=== PATIENT | female | born 1975 | race Caucasian/White ===

== ENCOUNTER 2017-10-13 09:18 | Day surgery (SDC) | payer MEDICAID ==
[~2017-10-13 09:18] MED LIST: CEFAZOLIN 2 GM/50 ML (PMX) 50 ML IVPB; SOD CHLORIDE 0.9% 1,000 ML IV
[2017-10-13 10:04] LABS: ADD MAN DIFF? NO
[2017-10-13 10:19] LABS: BASOPHILS % 0.4 % (0.0-2.0); EOSINOPHILS # 0.1 10^3/ul (0.0-0.5); EOSINOPHILS % 0.5 % (0.0-7.0); HEMATOCRIT 42.8 % (37.0-47.0); HEMOGLOBIN 14.3 g/dl (12.0-16.0); MEAN CORPUSCULAR HEMOGLOBIN 29.8 pg (29.0-33.0); MEAN CORPUSCULAR HGB CONC 33.4 g/dl (32.0-37.0); MEAN CORPUSCULAR VOLUME 89.2 fl (82.0-101.0); MEAN PLATELET VOLUME 11.1 fl (7.4-10.4); MONOCYTE # 0.5 10^3/ul (0.3-0.9); MONOCYTES % 5.1 % (0.0-11.0); NEUTROPHIL # 5.6 10^3/ul (1.6-7.5); NEUTROPHILS % 60.7 % (39.0-77.0); PLATELET COUNT 240 10^3/UL (140-415); RED CELL DISTRIBUTION WIDTH 12.7 % (11.5-14.5)
[2017-10-13 10:19] LABS: WHITE BLOOD COUNT 9.2 10^3/ul (4.8-10.8)
[2017-10-13 10:36] LABS: ALANINE AMINOTRANSFERASE 26 IU/L (13-69); ALBUMIN 4.2 g/dl (3.3-4.9); ALBUMIN/GLOBULIN RATIO 1.13; ALKALINE PHOSPHATASE 57 IU/L (42-121); ANION GAP 14 (8-16); ASPARTATE AMINO TRANSFERASE 23 IU/L (15-46); BILIRUBIN,INDIRECT 1.1 mg/dl (0-1.1); BILIRUBIN,TOTAL 1.1 mg/dl (0.2-1.3); CARBON DIOXIDE 26 mmol/L (21-31); CHLORIDE 105 mmol/L (97-110); GLUCOSE 100 mg/dl (70-220); TOTAL PROTEIN 7.9 g/dl (6.1-8.1)
[2017-10-13 10:38] LABS: INR 0.92; PROTIME 12.4 Sec (11.9-14.9)
[2017-10-13 10:39] LABS: PARTIAL THROMBOPLASTIN TIME 29.5 Sec (25.0-35.0)
[2017-10-13 10:40] LABS: BLOOD UREA NITROGEN 9 mg/dl (7-20); CREATININE 0.79 mg/dl (0.44-1.00); SODIUM 141 mmol/L (135-144)
[2017-10-13] MEDS ORDERED: NEOSTIGMINE 3 MG/3 ML SYRINGE (10:46)
[2017-10-13] MEDS ORDERED: CEFAZOLIN 1 GM INJ (10:46)
[2017-10-13] MEDS ORDERED: ONDANSETRON 4 MG INJ (10:46)
[2017-10-13] MEDS ORDERED: GLYCOPYRROLATE 0.4 MG INJ (10:46)
[2017-10-13] MEDS ORDERED: DEXAMETHASONE 4 MG/ML 1 ML INJ (10:46)
[2017-10-13] MEDS ORDERED: ROCURONIUM 50 MG INJ (10:46)
[2017-10-13] MEDS ORDERED: FENTAnyl 50 MCG/ML VIAL ×2 (10:46→11:12)
[2017-10-13] MEDS ORDERED: PROPOFOL 20 ML (10:46)
[2017-10-13] MEDS ORDERED: MIDAZOLAM 1 MG/ML 2 ML INJ (10:46)
[2017-10-13] MEDS: BUPIVACAINE 0.5%/EPI (SDV) 30 ML INJ (11:08)
[2017-10-13] MEDS ORDERED: TRIMETHOBENZAMIDE 100 MG/ML VIAL IM (11:30)
[2017-10-13] MEDS ORDERED: EPHEDrine SULFATE 50 MG/5 ML SYG IV (11:30)
[2017-10-13] MEDS ORDERED: MIDAZOLAM 1 MG/ML 2 ML INJ IV (11:30)
[2017-10-13] MEDS ORDERED: LABETALOL HCL 20MG INJ IV (11:30)
[2017-10-13] MEDS ORDERED: OXYCODONE/ACETAMINOPHEN (5/325) TAB PO (11:30)
[2017-10-13] MEDS ORDERED: MEPERIDINE 25 MG INJ IV (11:30)
[2017-10-13] MEDS ORDERED: HYDROmorphONE (0.2 MG/ML) 10ML SYG IV ×2 (11:30)
[2017-10-13] MEDS ORDERED: ALBUTEROL 0.083% (NEB) 2.5 MG/3 ML AMP HHN (11:30)
[2017-10-13] MEDS ORDERED: ONDANSETRON 4 MG INJ IV (11:30)
[2017-10-13] MEDS ORDERED: FENTAnyl 50 MCG/ML VIAL IV ×3 (11:30)
[2017-10-13] MEDS ORDERED: hydrALAzine 20 MG INJ IV (11:30)
[2017-10-13] MEDS ORDERED: IPRATROPIUM (NEB) 0.5 MG/2.5 ML AMP HHN (11:30)
[2017-10-13] MEDS ORDERED: DIPHENHYDRAMINE 50 MG INJ IV (11:30)
[2017-10-13] MEDS: HYDROmorphONE (0.2 MG/ML) 10ML SYG IV (11:59)
[2017-10-13] MEDS: OXYCODONE/ACETAMINOPHEN (5/325) TAB PO (13:28)
== END 2017-10-13 13:55 | disposition home or self-care (01) ==
LOC: SDS 09:18
DX: D24.1 Benign neoplasm of right breast (principal)
CPT/HCPCS: 19301; 80053; 85025; 85610; 85730; 88307